=== PATIENT | female | born 1975 ===

== ENCOUNTER 2023-07-13 22:22 | Emergency (ER) | payer OTHER ==
[~2023-07-13] VITALS: Ht 167.6 cm; Wt 81.7 kg
[2023-07-14 00:53] VITALS: BP 129/68
== END 2023-07-14 01:07 | disposition home or self-care (01) ==
LOC: ER 22:22
DX: R07.9 Chest pain, unspecified (principal); J06.9 Acute upper respiratory infection, unspecified; R06.02 Shortness of breath
CPT/HCPCS: 71046; 93005; 93010; 99284-25; A9270